=== PATIENT | male | born 1985 | race Caucasian/White ===

== ENCOUNTER → 2021-03-17 15:55 | Outpatient (BNVA) | payer SELFPAY | PROVIDERS: Visit Provider Nurse Practitioner | DX: M54.9 Dorsalgia, unspecified (principal) | CPT/HCPCS: 81000 ==

== ENCOUNTER 2021-05-15 06:54 | Outpatient (CLI) | payer SELFPAY ==
--- NOTE | 2021-05-15 07:07 | US_ITS ---
WS: [id number] SCROTAL ULTRASOUND REASON FOR EXAM: testicular pain COMPARISON: None available. TECHNIQUE: Grayscale and duplex color Doppler ultrasound examination of the scrotum. FINDINGS: RIGHT: Right testes measures 4.7 cm x 3.3 cm x 2.8 cm. Normal echogenicity. No focal lesion. No hydrocele. N ormal color Doppler flow. Right epididymis measures 0.7 cm x 1.2 cm x 1.2 cm. No focal lesion. Normal color Doppler flow. LEFT: Left testes measures 4.9 cm x 3.1 cm x 2.6 cm. Normal echogenicity. No focal lesion. No hydrocele. No rmal color Doppler flow. Left epididymis measures 0.7 cm x 1.3 cm x 1.4 cm. No focal lesion. Normal color Doppler flow. US/US scrotum [id number] IMPRESSION: Normal testicular ultrasound.
== END 2021-05-15 06:55 | disposition home or self-care (01) ==
PROVIDERS: Visit Provider Nurse Practitioner
DX: N50.89 Other specified disorders of the male genital organs (principal)
CPT/HCPCS: 76870

== ENCOUNTER → 2021-05-29 07:47 | Outpatient (BNVA) | payer SELFPAY | PROVIDERS: PCP Nurse Practitioner; Visit Provider Urology | DX: N50.819 Testicular pain, unspecified (principal) | CPT/HCPCS: 81003 ==

== ENCOUNTER → 2023-04-02 11:20 | Outpatient (BNVA) | payer SELFPAY | PROVIDERS: PCP Nurse Practitioner; Visit Provider Obstetrics & Gynecology | DX: Z20.5 Contact with and (suspected) exposure to viral hepatitis (principal) | CPT/HCPCS: 86803 ==